=== PATIENT | male | born 1945 | race African-American/Black ===

== ENCOUNTER 2017-06-05 13:21 | Emergency (ER) | payer MEDICARE, SELFPAY ==
[2017-06-05 21:20] LABS: Body Fluid Source SYNOVIAL FLUID; Tube # EDTA
[2017-06-05 21:21] LABS: BF Color Red; BF WBC/Nonhematics Ct. - Manua 111 /cumm; Clarity Hazy (Clear); RBC Count-Automated 23000 /cumm
[2017-06-05 21:32] LABS: BF Segmented Neutrophils 16 %; Cell Count Non Hematic 76 %; Lymphocytes 8 %
== END 2017-06-05 14:37 | disposition home or self-care (01) ==
LOC: NAV ERS 13:21
DX: M70.21 Olecranon bursitis, right elbow (principal); E11.9 Type 2 diabetes mellitus without complications; I10 Essential (primary) hypertension; F17.210 Nicotine dependence, cigarettes, uncomplicated
CPT/HCPCS: 85060; 87070; 87205; 89051; 89060; 99283

== ENCOUNTER 2017-06-06 13:07 | Emergency (ER) | payer MEDICARE | END 2017-06-06 13:38 | disposition home or self-care (01) | LOC: NAV ERS 13:07 | DX: M70.22 Olecranon bursitis, left elbow (principal); E11.9 Type 2 diabetes mellitus without complications; I10 Essential (primary) hypertension; F17.210 Nicotine dependence, cigarettes, uncomplicated; Z79.84 Long term (current) use of oral hypoglycemic drugs; Z79.899 Other long term (current) drug therapy | CPT/HCPCS: 99283 ==

== ENCOUNTER 2018-12-21 04:45 | Emergency (ER) | payer MEDICARE, SELFPAY ==
[2018-12-21] MEDS ORDERED: Nitroglycerin 2% Ointment 1 INCH/1 GM Packet ONE (05:20)
[2018-12-21] MEDS ORDERED: Carvedilol 3.125 MG TAB ONE (05:33)
[2018-12-21] MEDS ORDERED: Furosemide 40 MG/4 ML VIAL ONE (05:33)
[2018-12-21 05:35] LABS: #Basophils 0.1 thou/uL (0.0-0.2); #Lymphocytes 1.4 thou/uL (1.20-3.40); #Monocytes 0.6 thou/uL (0.11-0.59); #Neutrophils 9.6 thou/uL (1.40-6.50); %Basophils 0.8 % (0.0-1.0); %Eosinophils 0.4 % (0.0-10.0); %Lymphocytes 11.9 % (21.0-51.0); %Monocytes 5.2 % (0.0-10.0); %Neutrophils 81.7 % (42.0-75.0); Hemoglobin 9.1 g/dL (14.0-18.0); Mean Corpuscular HGB CONC 30.5 g/dL (32.0-36.0); Mean Corpuscular Hemoglobin 26.5 pg (27.0-31.0); Mean Corpuscular Volume 87.1 fL (78.0-98.0); Mean Platelet Volume 7.2 fL (7.4-10.4); Platelet Count 233 thou/uL (130-400); RBC Distribution Width 15.7 % (11.5-14.5); Red Blood Cell (RBC) Count 3.43 mill/uL (4.70-6.10); White Blood Cell (WBC) Count 11.7 thou/uL (4.8-10.8)
[2018-12-21 05:47] LABS: ALT (SGPT) 76 U/L (8-55); AST (SGOT) 137 U/L (5-34); Albumin 3.5 g/dL (3.4-4.8); Alkaline Phosphatase 139 U/L (40-150); Anion Gap 15 mmol/L (10-20); BUN (Urea Nitrogen) 34 mg/dL (8.4-25.7); Bilirubin, Total 0.1 mg/dL (0.2-1.2); Calc. Creatinine Clearance 0 mL/min (70-130); Calcium 8.6 mg/dL (7.8-10.44); Carbon Dioxide 18 mmol/L (23-31); Chloride 113 mmol/L (98-107); Estimated GFR-MDRD 21; Globulin 3.2 g/dL (2.4-3.5); Glucose 203 mg/dL (83-110); Potassium 4.7 mmol/L (3.5-5.1); Protein, Total 6.7 g/dL (5.8-8.1); Sodium 141 mmol/L (136-145)
--- NOTE | 2018-12-21 08:00 | RAD ---
CHEST ONE VIEW: HISTORY: Dyspnea. COMPARISON: None. FINDINGS: Heart size is enlarged. Mild pulmonary venous congestion. Small effusions. No pneumothorax. No ac alexis osseous abnormality. IMPRESSION: Cardiomegaly, small effusions, and mild edema. POS: CET
== END 2018-12-21 06:29 | disposition left against medical advice (07) ==
LOC: NAV ERS 04:45
DX: I50.1 Left ventricular failure, unspecified (principal); N19 Unspecified kidney failure; I11.0 Hypertensive heart disease with heart failure; I50.9 Heart failure, unspecified; E11.9 Type 2 diabetes mellitus without complications; Z85.038 Personal history of other malignant neoplasm of large intestine; F17.290 Nicotine dependence, other tobacco product, uncomplicated; Z79.899 Other long term (current) drug therapy
CPT/HCPCS: 71045; 80053; 83880; 84484; 85025; 96374; J1940

== ENCOUNTER 2018-12-25 13:41 | Emergency (ER) | payer MEDICARE ==
[2018-12-25 14:15] LABS: #Basophils 0.1 thou/uL (0.0-0.2); #Eosinphils 0.1 thou/uL (0.0-0.7); #Lymphocytes 1.3 thou/uL (1.20-3.40); #Monocytes 0.6 thou/uL (0.11-0.59); #Neutrophils 3.9 thou/uL (1.40-6.50); %Basophils 1.4 % (0.0-1.0); %Eosinophils 0.9 % (0.0-10.0); %Lymphocytes 22.4 % (21.0-51.0); %Monocytes 9.3 % (0.0-10.0); %Neutrophils 66.1 % (42.0-75.0); Hemoglobin 8.3 g/dL (14.0-18.0); Mean Corpuscular HGB CONC 30.3 g/dL (32.0-36.0); Mean Corpuscular Hemoglobin 26.4 pg (27.0-31.0); Mean Corpuscular Volume 87.2 fL (78.0-98.0); Mean Platelet Volume 6.9 fL (7.4-10.4); Platelet Count 224 thou/uL (130-400); RBC Distribution Width 15.6 % (11.5-14.5); Red Blood Cell (RBC) Count 3.15 mill/uL (4.70-6.10); White Blood Cell (WBC) Count 5.9 thou/uL (4.8-10.8)
[2018-12-25 14:32] LABS: ALT (SGPT) 26 U/L (8-55); AST (SGOT) 13 U/L (5-34); Albumin 3.3 g/dL (3.4-4.8); Alkaline Phosphatase 97 U/L (40-150); Anion Gap 13 mmol/L (10-20); BUN (Urea Nitrogen) 34 mg/dL (8.4-25.7); Bilirubin, Total 0.1 mg/dL (0.2-1.2); CK (CPK) 131 U/L (30-200); Calc. Creatinine Clearance 0 mL/min (70-130); Calcium 7.8 mg/dL (7.8-10.44); Carbon Dioxide 23 mmol/L (23-31); Chloride 113 mmol/L (98-107); Estimated GFR-MDRD 20; Globulin 2.9 g/dL (2.4-3.5); Glucose 123 mg/dL (83-110); Potassium 3.3 mmol/L (3.5-5.1); Protein, Total 6.2 g/dL (5.8-8.1); Sodium 146 mmol/L (136-145)
--- NOTE | 2018-12-25 14:41 | RAD ---
PORTABLE CHEST ONE VIEW: 12/25/2018 2:13 p.m. HISTORY: Right-sided chest pain. COMPARISON: 12/21/2018 FINDINGS: The heart size is borderline. The lungs are well expanded without focal areas of consolidation, pneu mothoraces, lindsey pulmonary edema, or pleural effusions. IMPRESSION: No acute process. POS: ZACHARYH
[2018-12-25] MEDS ORDERED: hydrALAZINE 10 MG TAB ONE (15:25)
[2018-12-25] MEDS ORDERED: Carvedilol 3.125 MG TAB ONE (15:25)
== END 2018-12-25 15:35 | disposition home or self-care (01) ==
LOC: NAV ERS 13:41
DX: R07.9 Chest pain, unspecified (principal); I10 Essential (primary) hypertension; E11.9 Type 2 diabetes mellitus without complications; F17.290 Nicotine dependence, other tobacco product, uncomplicated; Z85.038 Personal history of other malignant neoplasm of large intestine; Z79.899 Other long term (current) drug therapy
CPT/HCPCS: 71045; 80053; 82550; 83880; 84484; 85025; 93005

== ENCOUNTER 2019-01-14 18:47 | Emergency (ER) | payer MEDICARE ==
[2019-01-14] MEDS ORDERED: Morphine 4 MG/ML VIAL ONE (19:35)
[2019-01-14] MEDS ORDERED: Ondansetron ODT 4 MG TAB ONE (19:35)
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
[2019-01-14] MEDS ORDERED: hydrALAZINE 10 MG TAB ONE (20:33)
[2019-01-14] MEDS ORDERED: Labetalol HCl 100 MG/20 ML VIAL ONE (22:11)
[2019-01-14 22:27] LABS: Anion Gap 16 mmol/L (10-20); BUN (Urea Nitrogen) 38 mg/dL (8.4-25.7); Calc. Creatinine Clearance 0 mL/min (70-130); Calcium 8.6 mg/dL (7.8-10.44); Carbon Dioxide 17 mmol/L (23-31); Chloride 110 mmol/L (98-107); Estimated GFR-MDRD 21; Glucose 136 mg/dL (83-110); Potassium 4.5 mmol/L (3.5-5.1); Sodium 138 mmol/L (136-145)
[2019-01-14 22:32] LABS: Bilirubin Negative (Negative); Blood, Urine Trace (Negative); Clarity Clear (Clear); Glucose, Urine (Dipstick) 100 mg/dL (Negative); Leukocyte Negative (Negative); Nitrite Negative (Negative); Protein, Urine (Dipstick) 100 mg/dL (Neg-Trace); Urobilinogen 0.2 mg/dL (Less than 2)
[2019-01-14 22:38] LABS: Bacteria/HPF None Seen HPF (None Seen); RBC/HPF 0-3 HPF (0-3); Squamous Epithelial None Seen HPF (0-3); WBC/HPF 0-3 HPF (0-3)
[2019-01-14 22:47] LABS: CKMB 3.2 ng/mL (0-6.6)
== END 2019-01-14 22:58 | disposition left against medical advice (07) ==
LOC: NAV ERS 18:47
DX: M25.451 Effusion, right hip (principal); I16.9 Hypertensive crisis, unspecified; I10 Essential (primary) hypertension; R79.89 Other specified abnormal findings of blood chemistry; Z85.038 Personal history of other malignant neoplasm of large intestine; F17.290 Nicotine dependence, other tobacco product, uncomplicated; Z79.899 Other long term (current) drug therapy; E11.9 Type 2 diabetes mellitus without complications; W18.30XA Fall on same level, unspecified, initial encounter
CPT/HCPCS: 72192; 80048; 81003; 81015; 82553; 83880; 84484; 93005; 96372; 96374; J2270; Q0162

== ENCOUNTER 2019-01-21 13:50 | Emergency (ER) | payer MEDICARE ==
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
[2019-01-21] MEDS ORDERED: HYDROcodone/Acetaminophen 5/325 mg Tablet ONE (15:06)
== END 2019-01-21 15:21 | disposition home or self-care (01) ==
LOC: NAV ERS 13:50
DX: S56.811A Strain of other muscles, fascia and tendons at forearm level, right arm, initial encounter (principal); R10.9 Unspecified abdominal pain; I10 Essential (primary) hypertension; E11.9 Type 2 diabetes mellitus without complications; F17.290 Nicotine dependence, other tobacco product, uncomplicated; Z79.899 Other long term (current) drug therapy; Z85.038 Personal history of other malignant neoplasm of large intestine; X50.9XXA Other and unspecified overexertion or strenuous movements or postures, initial encounter

== ENCOUNTER 2020-06-29 09:32 | Emergency (ER) | payer MEDICARE ==
[2020-06-29] MEDS ORDERED: Furosemide 40 MG/4 ML VIAL ONE (10:04)
[2020-06-29] MEDS ORDERED: Nitroglycerin 2% Ointment 1 INCH/1 GM Packet ONE (10:13)
--- NOTE | 2020-06-29 10:41 | RAD ---
PORTABLE CHEST 1 VIEW: DATE: 06/29/2020. TIME: 9:59 AM. HISTORY: Dyspnea. COMPARISON: 12/25/2018. FINDINGS: The heart size remains borderline. The lungs are well expanded without focal areas of consolidation, pneumothoraces, lindsey pulmonary edema, or pleural effusions. IMPRESSION: No acute process. POS: OFF
[2020-06-29 10:45] LABS: ALT (SGPT) 14 U/L (8-55); AST (SGOT) 24 U/L (5-34); Albumin 2.8 g/dL (3.4-4.8); Alkaline Phosphatase 133 U/L (40-110); BUN (Urea Nitrogen) 71 mg/dL (8.4-25.7); Band 4 % (5-11); Bilirubin, Total 0.4 mg/dL (0.2-1.2); Calc. Creatinine Clearance 0 mL/min (70-130); Chloride 108 mmol/L (98-107); Globulin 2.5 g/dL (2.4-3.5); Glucose 158 mg/dL (83-110); Hypochromia SLIGHT = 6-15 cells (100X) (0-5/hpf); Lymphocytes 8 % (21-51); MDiff Complete? YES; Mean Corpuscular Hemoglobin 30.3 pg (27.0-31.0); Mean Corpuscular Volume 97.8 fL (78.0-98.0); Mean Platelet Volume 7.3 fL (7.4-10.4); Monocytes 4 % (0-10); Neutrophil 84 % (42-75); Platelet Count 186 thou/uL (130-400); Platelet Morphology Comment Appears Adequate; Potassium 4.5 mmol/L (3.5-5.1); Protein, Total 5.3 g/dL (5.8-8.1); RBC Distribution Width 15.9 % (11.5-14.5); Sodium 136 mmol/L (136-145); White Blood Cell (WBC) Count 16.4 thou/uL (4.8-10.8)
[2020-06-29] MEDS ORDERED: Nitroglycerin 50 MG/250 ML BOT 250 ML ONE (10:45)
[2020-06-29 10:50] LABS: Calcium 5.9 mg/dL (7.8-10.44); Carbon Dioxide Less than 8 mmol/L (23-31)
[2020-06-29 10:51] LABS: Base Excess-Venous -18.4 mmol/L (-2.0 to 3.0); CO2 Tension (PvCO2) 21.3 mmHg (40.0-50.0); Calcium, Ionized 0.76 mmol/L (1.15-1.33); Chloride 112 mmol/L (98-107); Hemoglobin - Calc 12.5 g/dL (14.0-18.0); Potassium 4.4 mmol/L (3.5-5.1); Sodium 136 mmol/L (138-145); T. Carbon Dioxide 8.7 mmol/L (22.0-28.0); vO2 Saturation-calc 95.1 % (60.0-85.0)
[2020-06-29] MEDS ORDERED: Sodium Chloride 0.9% 100 ML ONE (11:02)
[2020-06-29] MEDS ORDERED: Cefepime 2 GM VIAL ONE (11:02)
[2020-06-29] MEDS ORDERED: Sodium Chloride 0.9% 500 ML ONE (11:07)
[2020-06-29 11:15] LABS: CKMB 11.8 ng/mL (0-6.6)
[2020-06-29] MEDS ORDERED: Aspirin Chewable 81 MG TAB ONE (11:15)
== END 2020-06-29 11:30 | disposition short-term general hospital (02) ==
LOC: NAV ERS 09:32
DX: A41.9 Sepsis, unspecified organism (principal); J96.90 Respiratory failure, unspecified, unspecified whether with hypoxia or hypercapnia; N17.9 Acute kidney failure, unspecified; I21.4 Non-ST elevation (NSTEMI) myocardial infarction; E11.9 Type 2 diabetes mellitus without complications; I10 Essential (primary) hypertension; F17.210 Nicotine dependence, cigarettes, uncomplicated
CPT/HCPCS: 51702; 71045; 80053; 82330; 82553; 82803; 83605; 83880; 84484; 85025; 85379; 87040; 87077; 87086; 87149; 87186; 93005; 94760; 96365; 96375; J0692; J1940; J3370; J3490; J7030; J7620